=== PATIENT | male | born 1965 | race Two or more races ===

== ENCOUNTER 2018-08-09 20:13 | Emergency (ER) | payer MEDICAID ==
--- NOTE | 2018-08-09 21:04 | EDM.PDOC ---
ED HPI GENERAL MEDICAL PROBLEM - General Chief Complaint: Respiratory Problem Stated Complaint: DIFFICULTY BREATHING Time Seen by Provider: 08/09/18 20:30 Source of Information: Reports: Patient - History of Present Illness INITIAL COMMENTS - FREE TEXT/NARRATIVE: Scar complains of a cough for about a month. Productive; associated postnasal drainage and runny nose. Failed 2 courses antibiotics, the last course was ciprofloxacin with no improvement(07/20). Scar has a history of COPD, tobacco abuse, hypertension &type 2 diabetes. He denies fever or chills neither does he have any history. - Related Data Allergies Allergy/AdvReac Type Severity Reaction Status Date / Time No Known Allergies Allergy Verified 08/09/18 20:34 Home Meds: Home Meds Lisinopril 40 mg PO DAILY 07/20/18 [History] Metoprolol Succinate 50 mg PO DAILY 07/20/18 [History] amLODIPine Besylate [Amlodipine Besylate] 5 mg PO DAILY 07/20/18 [History] atorvaSTATin Calcium [Atorvastatin Calcium] 40 mg PO BEDTIME 07/20/18 [History] metFORMIN HCl [Metformin HCl] 500 mg PO BID 07/20/18 [History] Past Medical History Cardiovascular History: Reports: High Cholesterol, Hypertension Respiratory History: Reports: Pneumonia, Recurrent Psychiatric History: Reports: Anxiety, Depression Endocrine/Metabolic History: Reports: Diabetes, Type II - Past Surgical History Cardiovascular Surgical History: Reports: Other (See Below) Other Cardiovascular Surgeries/Procedures: Valve surgery GI Surgical History: Reports: Hernia, Inguinal Social & Family History - Family History Family Medical History: Noncontributory - Tobacco Use Smoking Status *Q: Current Every Day Smoker Years of Tobacco use: 35 Packs/Tins Daily: 1 - Caffeine Use Caffeine Use: Reports: Coffee - Recreational Drug Use Recreational Drug Use: No ED ROS GENERAL - Review of Systems Review Of Systems: ROS reveals no pertinent complaints other than HPI. ED EXAM, GENERAL - Physical Exam Exam: See Below Exam Limited By: No Limitations General Appearance: Alert, WD/WN Throat/Mouth: Normal Inspection, Normal Lips, Normal Teeth, Normal Gums, Normal Oropharynx, Normal Voice, No Airway Compromise Head: Atraumatic, Normocephalic Neck: Normal Inspection, Supple, Non-Tender, Full Range of Motion Respiratory/Chest: No Respiratory Distress, Lungs Clear, Normal Breath Sounds, No Accessory Muscle Use, Chest Non-Tender Cardiovascular: Normal Peripheral Pulses Course - Vital Signs Last Recorded V/S: Last Vital Signs Temp 97.6 F 08/09/18 20:15 Pulse 81 08/09/18 20:15 Resp 18 08/09/18 20:15 BP 122/79 08/09/18 20:15 Pulse Ox 99 08/09/18 20:15 - Orders/Labs/Meds Orders: Active Orders 24 hr Category Date Time Status CXR [Chest 2V] [CR] Stat Exams 08/09/18 20:38 Taken Departure - Departure Time of Disposition: 21:02 Disposition: Home, Self-Care 01 Clinical Impression: COPD (chronic obstructive pulmonary disease) - Discharge Information Referrals: PCP,Not In Area [Primary Care Provider] - - Problem List & Annotations (1) COPD (chronic obstructive pulmonary disease) SNOMED Code(s): 57202288 Code(s): J44.9 - CHRONIC OBSTRUCTIVE PULMONARY DISEASE, UNSPECIFIED Status : Acute Current Visit: Yes Qualifiers: COPD type: COPD with acute exacerbation Qualified Code(s): J44.1 - Chronic obstructive pulmonary disease with (acute) exacerbation - Problem List Review Problem List Initiated/Reviewed/Updated: Yes - My Orders Last 24 Hours: My Active Orders 08/09/18 20:38 CXR [Chest 2V] [CR] Stat - Assessment/Plan Last 24 Hours: My Active Orders 08/09/18 20:38 CXR [Chest 2V] [CR] Stat Plan: His chest x-ray was unremarkable. I sent him on prednisone, and chose doxycycline for abx.
--- NOTE | 2018-08-12 13:59 | CR ---
INDICATION: Cough. CHEST TWO VIEWS: PA and lateral views of the chest revealed the heart, mediastinum and avril thoracic to be unremarkable. There is a suggestion of a small nodular density at the lower lung field on the right likely representing a granuloma. This could be compared to previous studies if available or reexamined in 3 to 6 months to confirm stability. An active infiltrate or effusion was not identified. IMPRESSION: No acute process. Probable granuloma to right lung base. Follow up study or comparison to old studies may be helpful to confirm probable granuloma. MTDD
== END 2018-08-09 21:00 | disposition home or self-care (01) ==
LOC: FB.ED 20:13
DX: J44.9 Chronic obstructive pulmonary disease, unspecified (principal); E78.00 Pure hypercholesterolemia, unspecified; I10 Essential (primary) hypertension; E11.9 Type 2 diabetes mellitus without complications; F41.9 Anxiety disorder, unspecified; F32.9 Major depressive disorder, single episode, unspecified; F17.210 Nicotine dependence, cigarettes, uncomplicated; Z79.899 Other long term (current) drug therapy; Z79.84 Long term (current) use of oral hypoglycemic drugs
CPT/HCPCS: 71046; 99283

== ENCOUNTER 2018-11-27 22:52 | Emergency (ER) | payer MEDICAID ==
--- NOTE | 2018-11-27 23:16 | EDM.PDOC ---
ED HPI GENERAL MEDICAL PROBLEM - General Chief Complaint: ENT Problem Stated Complaint: TOOTHPAIN Time Seen by Provider: 11/27/18 22:52 Source of Information: Reports: Patient, Family (Friend) History Limitations: Reports: No Limitations - History of Present Illness INITIAL COMMENTS - FREE TEXT/NARRATIVE: 53 y.o.w.m -smoker- came with his friend to the ed due to tooth ache today. Pt took Tylenol EMS DIRECTOR which did not help. Pt was not able to sleep due to tooth ache , prompting him to come to the ED. Pt stated he has no dentist. Eating and cold exposure makes the pain worse. No N/V/D no CP or any other acute medical issues. BP 112/80 RR 17 Pulse ox 95% on RA Pulse 87 Temp 36.8 Onset Date: 11/27/18 Onset Time: 06:00 Duration: Hour(s):, Getting Worse, Intermittent Location: Reports: Face (molar tooth) Quality: Reports: Dull, Pressure, Throbbing Severity: Moderate Improves with: Reports: None Worsens with: Reports: None Context: Reports: Other (poor dentition) Associated Symptoms: Reports: No Other Symptoms Treatments EMS DIRECTOR: Reports: NSAIDS - Related Data Allergies Allergy/AdvReac Type Severity Reaction Status Date / Time No Known Allergies Allergy Verified 11/27/18 23:11 Home Meds: Home Meds Lisinopril 40 mg PO DAILY 07/20/18 [History] Metoprolol Succinate 100 mg PO DAILY 07/20/18 [History] metFORMIN HCl [Metformin HCl] 500 mg PO BID 07/20/18 [History] Amoxicillin/Potassium Clav [Augmentin 875-125 Tablet] 1 each PO BID #20 tablet 11/27/18 [Rx] Past Medical History Cardiovascular History: Reports: High Cholesterol, Hypertension Respiratory History: Reports: Pneumonia, Recurrent Psychiatric History: Reports: Anxiety, Depression Endocrine/Metabolic History: Reports: Diabetes, Type II - Past Surgical History Cardiovascular Surgical History: Reports: Other (See Below) Other Cardiovascular Surgeries/Procedures: Valve surgery GI Surgical History: Reports: Hernia, Inguinal Social & Family History - Family History Family Medical History: Noncontributory - Caffeine Use Caffeine Use: Reports: Coffee ED ROS ENT - Review of Systems Review Of Systems: See Below Constitutional: Reports: No Symptoms HEENT: Reports: Throat Pain Respiratory: Reports: No Symptoms Cardiovascular: Reports: No Symptoms Endocrine: Reports: No Symptoms GI/Abdominal: Reports: No Symptoms : Reports: No Symptoms Musculoskeletal: Reports: No Symptoms Skin: Reports: No Symptoms Neurological: Reports: No Symptoms Psychiatric: Reports: No Symptoms Hematologic/Lymphatic: Reports: No Symptoms Immunologic: Reports: No Symptoms ED EXAM, ENT - Physical Exam Exam: See Below Exam Limited By: No Limitations General Appearance: Alert, WD/WN, Mild Distress Eye Exam: Bilateral Eye: Normal Inspection Ears: Normal External Exam Nose: Normal Inspection, Normal Mucousa Mouth/Throat: Normal Lips, Normal Oropharynx, Dental Pain, Dental Tenderness, Dental Trauma (Tooths #32) Head: Atraumatic, Normocephalic Neck: Normal Inspection, Supple, Non-Tender Respiratory/Chest: No Respiratory Distress, Lungs Clear, Normal Breath Sounds, No Accessory Muscle Use, Chest Non-Tender Cardiovascular: Normal Peripheral Pulses, Regular Rate, Rhythm, No Edema, No Gallop, No Murmur GI/Abdominal: Normal Bowel Sounds, Soft, Non-Tender, No Mass (Male) Exam: Deferred Rectal (Males) Exam: Deferred Back: Normal Inspection, Full Range of Motion Extremities: Normal Inspection, Normal Range of Motion, No Pedal Edema, Normal Capillary Refill Neurological: Alert, Oriented, CN II-XII Intact, Normal Cognition, Normal Gait Psychiatric: Normal Affect, Normal Mood Skin: Warm, Dry, Intact, Normal Color, No Rash Lymphatic: No Adenopathy Course - Vital Signs Text/Narrative:: 53 y.o.w.m -smoker- came with his friend to the ed due to tooth ache today. Pt took Tylenol EMS DIRECTOR which did not help. Pt was not able to sleep due to tooth ache , prompting him to come to the ED. Pt stated he has no dentist. Eating and cold exposure makes the pain worse. No N/V/D no CP or any other acute medical issues. BP 112/80 RR 17 Pulse ox 95% on RA Pulse 87 Temp 36.8 PE: WNWD W M with with a decayed tooth # 32 Impression: Toothache, decayed tooth #32, Poor dentition. Tx: Augmentin, [place] Reexam: Improved Plan: D/C with instructions Last Recorded V/S: Last Vital Signs Temp 36.8 C 11/27/18 23:05 Pulse 87 11/27/18 23:05 Resp 17 11/27/18 23:05 BP 112/80 11/27/18 23:05 Pulse Ox 95 11/27/18 23:05 - Orders/Labs/Meds Meds: Medications Discontinued Medications Generic Name Dose Route Start Last Admin Trade Name Dima PRN Reason Stop Dose Admin Hydrocodone Bitart/Acetaminophen 2 tab 11/27/18 23:09 11/27/18 23:18 [place] 325-5 Mg PO 11/27/18 23:10 1 tab ONETIME ONE Administration Amoxicillin/Clavulanate Potassium 1 tab 11/27/18 23:10 11/27/18 23:18 Augmentin 875 Mg/125 Mg PO 11/27/18 23:11 1 tab ONETIME ONE Administration Departure - Departure Time of Disposition: 23:11 Disposition: Home, Self-Care 01 Condition: Good Clinical Impression: Toothache, Poor dentition - Discharge Information Prescriptions: Amoxicillin/Potassium Clav [Augmentin 875-125 Tablet] 1 each PO BID #20 tablet Instructions: Dental Abscess, Benzocaine mouth gel, ointment, solution, or dental paste Referrals: Evelyn Hameed NP [Primary Care Provider] - Forms: ED Department Discharge Additional Instructions: Please quit tobacco use, please apply mouth/teeth hygiene, take Augmentin as recommended, Motin every 6-8 hours with food, please f/u with a dentist in am. Please come back if your symptoms get worse acutely
[2018-11-27] MEDS: Acetaminophen/HYDROcodone 325-5 MG Tab PO ONE (23:18)
[2018-11-27] MEDS: Amoxicillin/Clavulanate K 875-125 MG Tab PO ONE (23:18)
== END 2018-11-27 23:29 | disposition home or self-care (01) ==
LOC: FB.ED 22:52
DX: K02.9 Dental caries, unspecified (principal); K00.7 Teething syndrome; I10 Essential (primary) hypertension; E11.9 Type 2 diabetes mellitus without complications; Z79.84 Long term (current) use of oral hypoglycemic drugs; Z79.899 Other long term (current) drug therapy
CPT/HCPCS: 99282; A9270-GY

== ENCOUNTER 2019-06-01 22:11 | Emergency (ER) | payer MEDICAID ==
--- NOTE | 2019-06-01 22:29 | EDM.PDOC ---
ED HPI GENERAL MEDICAL PROBLEM - General Chief Complaint: Cardiovascular Problem Stated Complaint: BLOOD PRESSURE Time Seen by Provider: 06/01/19 22:15 Source of Information: Reports: Patient History Limitations: Reports: No Limitations - History of Present Illness INITIAL COMMENTS - FREE TEXT/NARRATIVE: pt ran out of his Metoprolol X 3 days and wants this treated, he checked BP at home and was in 150s systolic, pt denies any Neuro/CV/ resp sx or any other associated sx or medical concerns, states he has a refill on his metoprolol that he can pick up attendant tomorrow. - Related Data Allergies Allergy/AdvReac Type Severity Reaction Status Date / Time No Known Allergies Allergy Verified 11/27/18 23:11 Home Meds: Home Meds Lisinopril 40 mg PO DAILY 07/20/18 [History] Metoprolol Succinate 100 mg PO DAILY 07/20/18 [History] metFORMIN HCl [Metformin HCl] 500 mg PO BID 07/20/18 [History] Amoxicillin/Potassium Clav [Augmentin 875-125 Tablet] 1 each PO BID #20 tablet 11/27/18 [Rx] Past Medical History Cardiovascular History: Reports: High Cholesterol, Hypertension Respiratory History: Reports: Pneumonia, Recurrent Psychiatric History: Reports: Anxiety, Depression Endocrine/Metabolic History: Reports: Diabetes, Type II - Past Surgical History Cardiovascular Surgical History: Reports: Other (See Below) Other Cardiovascular Surgeries/Procedures: Valve surgery GI Surgical History: Reports: Hernia, Inguinal Social & Family History - Family History Family Medical History: Noncontributory - Caffeine Use Caffeine Use: Reports: Coffee ED ROS GENERAL - Review of Systems Review Of Systems: See Below Constitutional: Reports: No Symptoms HEENT: Reports: No Symptoms Respiratory: Reports: No Symptoms Cardiovascular: Reports: No Symptoms GI/Abdominal: Reports: No Symptoms Musculoskeletal: Reports: No Symptoms Neurological: Reports: No Symptoms ED EXAM, GENERAL - Physical Exam Exam: See Below Exam Limited By: No Limitations General Appearance: Alert, No Apparent Distress Eye Exam: Bilateral Eye: Normal Inspection Nose: Normal Inspection Throat/Mouth: Normal Inspection, Normal Oropharynx Head: Atraumatic, Normocephalic Neck: Normal Inspection, Supple, Non-Tender Respiratory/Chest: No Respiratory Distress, Lungs Clear, Normal Breath Sounds Cardiovascular: Normal Peripheral Pulses, No JVD, No Murmur GI/Abdominal: Normal Bowel Sounds, Soft Extremities: Normal Inspection Course - Vital Signs Text/Narrative:: pt is medically stable with regards to his hypertension , one tablet metoprolol ER 150 mg was given , pt to pick up attendant his prescription tomorrow and follow with his PCP . Departure - Departure Time of Disposition: 22:32 Disposition: Home, Self-Care 01 Clinical Impression: Hypertension Referrals: Evelyn Hameed NP [Primary Care Provider] -
[2019-06-01] MEDS ORDERED: Metoprolol Succinate 100 MG Tab.ER PO ONE (22:32)
== END 2019-06-01 22:50 | disposition home or self-care (01) ==
LOC: FB.ED 22:11
DX: I10 Essential (primary) hypertension (principal); E11.9 Type 2 diabetes mellitus without complications; Z79.84 Long term (current) use of oral hypoglycemic drugs; Z79.899 Other long term (current) drug therapy
CPT/HCPCS: 99282; A9270

== ENCOUNTER 2019-06-14 23:14 | Emergency (ER) | payer MEDICAID ==
[2019-06-14] MEDS ORDERED: Albuterol 8 GM Inhaler INH ONE (23:15)
[2019-06-14] MEDS ORDERED: Azithromycin 250 MG Tab PO ONE (23:15)
[2019-06-14] MEDS ORDERED: predniSONE 20 MG Tab PO ONE (23:15)
[2019-06-14] MEDS ORDERED: Albuterol/Ipratropium 3.0-0.5 MG/3 ML Neb Soln NEB ONE (23:35)
--- NOTE | 2019-06-15 00:18 | EDM.PDOC ---
ED HPI GENERAL MEDICAL PROBLEM - General Chief Complaint: Chest Pain Stated Complaint: CHEST PAIN Time Seen by Provider: 06/15/19 00:12 Source of Information: Reports: Patient History Limitations: Reports: No Limitations - History of Present Illness INITIAL COMMENTS - FREE TEXT/NARRATIVE: Scar is a 54 yo male with HTN,DM and tobacco abuse who presents with a cough , wheezing an bilateral pleuritic chest pain for a few days duration. The cough is paroxysmal,associated with shortness of breath. No fever. No lien chest,jaw, or neck pain.He endorses heavily smoking for several years. - Related Data Allergies Allergy/AdvReac Type Severity Reaction Status Date / Time No Known Allergies Allergy Verified 06/01/19 22:25 Home Meds: Home Meds Lisinopril 40 mg PO DAILY 07/20/18 [History] Metoprolol Succinate 150 mg PO DAILY 07/20/18 [History] metFORMIN HCl [Metformin HCl] 500 mg PO BID 07/20/18 [History] Aspirin [Adult Low Dose Aspirin EC] 81 mg PO DAILY 06/01/19 [History] amLODIPine Besylate [Amlodipine Besylate] 5 mg PO DAILY 06/01/19 [History] atorvaSTATin [Lipitor] 40 mg PO BEDTIME 06/01/19 [History] Past Medical History Cardiovascular History: Reports: High Cholesterol, Hypertension Respiratory History: Reports: Pneumonia, Recurrent Psychiatric History: Reports: Anxiety, Depression Endocrine/Metabolic History: Reports: Diabetes, Type II - Past Surgical History Cardiovascular Surgical History: Reports: Other (See Below) Other Cardiovascular Surgeries/Procedures: Valve surgery GI Surgical History: Reports: Hernia, Inguinal Social & Family History - Family History Family Medical History: Noncontributory - Caffeine Use Caffeine Use: Reports: Coffee ED ROS GENERAL - Review of Systems Review Of Systems: Comprehensive ROS is negative, except as noted in HPI. ED EXAM, GENERAL - Physical Exam Exam: See Below Exam Limited By: No Limitations General Appearance: Mild Distress Ears: Normal External Exam Nose: Normal Inspection Throat/Mouth: Normal Inspection Head: Atraumatic Neck: Normal Inspection Respiratory/Chest: No Respiratory Distress, Chest Non-Tender, Decreased Breath Sounds, Crackles, Rhonchi Cardiovascular: Normal Peripheral Pulses, Regular Rate, Rhythm, No Edema EKG INTERPRETATION EKG Date: 06/15/19 Rhythm: NSR [place]: Normal Course - Orders/Labs/Meds Orders: Active Orders 24 hr Category Date Time Status EKG Documentation Completion [RC] ASDIRECTED Care 06/14/19 23:25 Active RT Aerosol Therapy [RC] ASDIRECTED Care 06/14/19 23:35 Active Chest 2V [CR] Stat Exams 06/14/19 23:37 Taken EKG 12 Lead [EK] Routine Ther 06/14/19 23:25 Ordered Meds: Medications Discontinued Medications Generic Name Dose Route Start Last Admin Trade Name Dima PRN Reason Stop Dose Admin Albuterol/Ipratropium 3 ml 06/14/19 23:35 06/14/19 23:35 Duoneb 3.0-0.5 Mg/3 Ml NEB 06/14/19 23:36 3 ml ONETIME ONE Administration Departure - Departure Time of Disposition: 00:15 Disposition: Home, Self-Care 01 Condition: Good Clinical Impression: COPD (chronic obstructive pulmonary disease) Qualifiers: COPD type: COPD with acute exacerbation Qualified Code(s): J44.1 - Chronic obstructive pulmonary disease with (acute) exacerbation - Discharge Information Referrals: PCP,None [Primary Care Provider] - - Problem List & Annotations (1) COPD (chronic obstructive pulmonary disease) SNOMED Code(s): 77290147 Code(s): J44.9 - CHRONIC OBSTRUCTIVE PULMONARY DISEASE, UNSPECIFIED Status : Acute Current Visit: Yes Qualifiers: COPD type: COPD with acute exacerbation Qualified Code(s): J44.1 - Chronic obstructive pulmonary disease with (acute) exacerbation (2) Hypertension SNOMED Code(s): 37328482 Code(s): I10 - ESSENTIAL (PRIMARY) HYPERTENSION Status: Acute Current Visit: No - Problem List Review Problem List Initiated/Reviewed/Updated: Yes - My Orders Last 24 Hours: My Active Orders 06/14/19 23:25 EKG Documentation Completion [RC] ASDIRECTED EKG 12 Lead [EK] Routine 06/14/19 23:35 RT Aerosol Therapy [RC] ASDIRECTED 06/14/19 23:37 Chest 2V [CR] Stat - Assessment/Plan Last 24 Hours: My Active Orders 06/14/19 23:25 EKG Documentation Completion [RC] ASDIRECTED EKG 12 Lead [EK] Routine 06/14/19 23:35 RT Aerosol Therapy [RC] ASDIRECTED 06/14/19 23:37 Chest 2V [CR] Stat Plan: Patient declined blood work. A CXR & EKG were unremarkable.He responded very well to Duo Neb. I discharged him home on Pro Air,Zpak and Prednisone. I strongly encouraged him to quit smoking. I strictly recommended follow up on Sunday,and to return to ED with any worsening symptoms
== END 2019-06-15 00:45 | disposition home or self-care (01) ==
LOC: FB.ED 23:14
DX: J44.1 Chronic obstructive pulmonary disease with (acute) exacerbation (principal); I10 Essential (primary) hypertension; E78.00 Pure hypercholesterolemia, unspecified; E11.9 Type 2 diabetes mellitus without complications; Z79.82 Long term (current) use of aspirin; Z79.899 Other long term (current) drug therapy
CPT/HCPCS: 71046; 93005; 94640; 99285; A9270; J7620-GY

== ENCOUNTER 2019-07-13 13:27 | Emergency (ER) | payer MEDICAID ==
--- NOTE | 2019-07-13 13:55 | EDM.PDOC ---
ED HPI GENERAL MEDICAL PROBLEM - General Chief Complaint: Gastrointestinal Problem Stated Complaint: VOMIT,NAUSEA Time Seen by Provider: 07/13/19 13:50 Source of Information: Reports: Patient History Limitations: Reports: No Limitations - History of Present Illness INITIAL COMMENTS - FREE TEXT/NARRATIVE: pt comes ambulatory and asymptomatic to ER with concerns for a brief episode he had about 6 hrs ago were he felt while smoking his cigarete at his office , very light headed, nauseous, and diaphoretic, this lasted about 10 minutes, , had an emesis during this, , denies LOC or any chest pain or SOB or any other associated sx , report experiencing similar sx like this but not as bad/ only dizzy spell for a bout a year along with Hx of chronic exertional dyspnea , and tells me he had a neg stress test about a month ago. pt report long Hx of heavy tobacco abuse for many years. and Hx of HTN. Headache Pain Score (Numeric/FACES): 9 - Related Data Allergies Allergy/AdvReac Type Severity Reaction Status Date / Time No Known Allergies Allergy Verified 07/13/19 13:57 Home Meds: Home Meds Lisinopril 40 mg PO DAILY 07/20/18 [History] Metoprolol Succinate 150 mg PO DAILY 07/20/18 [History] metFORMIN HCl [Metformin HCl] 500 mg PO BID 07/20/18 [History] Aspirin [Adult Low Dose Aspirin EC] 81 mg PO DAILY 06/01/19 [History] amLODIPine Besylate [Amlodipine Besylate] 5 mg PO DAILY 06/01/19 [History] atorvaSTATin [Lipitor] 40 mg PO BEDTIME 06/01/19 [History] Cyclobenzaprine [Flexeril] 10 mg PO ASDIRECTED 06/15/19 [History] Escitalopram [Lexapro] 20 mg PO ASDIRECTED 06/15/19 [History] Past Medical History Cardiovascular History: Reports: High Cholesterol, Hypertension Respiratory History: Reports: Pneumonia, Recurrent Psychiatric History: Reports: Anxiety, Depression Endocrine/Metabolic History: Reports: Diabetes, Type II - Past Surgical History Cardiovascular Surgical History: Reports: Other (See Below) Other Cardiovascular Surgeries/Procedures: Valve surgery GI Surgical History: Reports: Hernia, Inguinal Social & Family History - Family History Family Medical History: Noncontributory - Caffeine Use Caffeine Use: Reports: Coffee ED ROS GENERAL - Review of Systems Review Of Systems: See Below Constitutional: Reports: No Symptoms. Denies: Fever, Chills HEENT: Reports: No Symptoms Respiratory: Reports: No Symptoms Cardiovascular: Reports: No Symptoms GI/Abdominal: Reports: Nausea, Vomiting Musculoskeletal: Reports: No Symptoms Skin: Reports: No Symptoms ED EXAM, GENERAL - Physical Exam Exam: See Below Exam Limited By: No Limitations General Appearance: Alert, No Apparent Distress Eye Exam: Bilateral Eye: Normal Inspection Nose: Normal Inspection Throat/Mouth: Normal Inspection, Normal Oropharynx Head: Atraumatic, Normocephalic Neck: Normal Inspection, Supple, Non-Tender Respiratory/Chest: No Respiratory Distress, Lungs Clear Cardiovascular: Normal Peripheral Pulses, Regular Rate, Rhythm, No Edema GI/Abdominal: Normal Bowel Sounds, Soft, Non-Tender Back Exam: Normal Inspection Extremities: Normal Inspection, Normal Range of Motion, No Pedal Edema Neurological: Alert, Oriented, CN II-XII Intact Psychiatric: Normal Affect Skin Exam: Warm, Dry Course - Vital Signs Text/Narrative:: unremarkable labs and CXR results were explained to pt, EKG shows no acute changes. pt remained asymptomatic here and the episode he had earlier this morning is concerning for angina , pt is stable to follow with pcp on this issue, this was explained to pt and was asked to schedule a follow up appointment in 2 days. meanwhile advised pt to start working on smoking cessation and take baby asa daily. Last Recorded V/S: Last Vital Signs Temp 36.3 C 07/13/19 13:30 Pulse 91 07/13/19 13:30 Resp 20 07/13/19 13:30 BP 141/100 H 07/13/19 13:30 Pulse Ox 98 07/13/19 13:30 - Orders/Labs/Meds Orders: Active Orders 24 hr Category Date Time Status EKG Documentation Completion [RC] ASDIRECTED Care 07/13/19 13:57 Active Chest 1V Frontal [CR] Stat Exams 07/13/19 13:56 Taken EKG 12 Lead [EK] Routine Ther 07/13/19 13:56 Ordered Labs: Laboratory Tests 07/13/19 07/13/19 07/13/19 Range/Units 14:05 14:05 14:05 WBC 10.8 (4.5-12.0) X10-3/uL RBC 5.19 (4.30-5.75) x10(6)uL Hgb 15.8 (13.5-17.8) g/dL Hct 46.5 (30.0-51.3) % MCV 89.5 (80-96) fL MCH 30.4 (27.7-33.6) pg MCHC 34.0 (32.2-35.4) g/dL RDW 12.9 (11.5-15.5) % Plt Count 124 L (125-369) X10(3)uL MPV 10.3 (7.4-10.4) fL Neut % (Auto) 75.3 (46-82) % Lymph % (Auto) 18.1 (13-37) % [place] % (Auto) 5.0 (4-12) % Eos % (Auto) 1 (1.0-5.0) % Baso % (Auto) 0 (0-2) % Neut # (Auto) 8.2 (1.6-8.3) # Lymph # (Auto) 2.0 (0.6-5.0) # [place] # (Auto) 0.5 (0.0-1.3) # Eos # (Auto) 0.1 (0.0-0.8) # Baso # (Auto) 0.0 (0.0-0.2) # Sodium 143 (135-145) mmol/L Potassium 4.1 (3.5-5.3) mmol/L Chloride 108 (100-110) mmol/L Carbon Dioxide 22 (21-32) mmol/L BUN 20 H (7-18) mg/dL Creatinine 0.8 (0.70-1.30) mg/dL Est Cr Clr Drug Dosing 82.47 mL/min Estimated GFR (MDRD) > 60 (>60) BUN/Creatinine Ratio 25.0 H (9-20) Glucose 132 H (80-116) mg/dL Calcium 8.8 (8.6-10.2) mg/dL Total Bilirubin 0.4 (0.1-1.3) mg/dL AST 23 (5-25) IU/L ALT 52 H (12-36) U/L Alkaline Phosphatase 76 (56-112) IU/L Troponin I < 0.017 L (<0.017-0.056) ng/mL Total Protein 6.8 (6.0-8.0) g/dL Albumin 3.6 (3.5-5.2) g/dL Globulin 3.2 g/dL Albumin/Globulin Ratio 1.1 TSH, Ultra Sensitive 0.87 (0.36-3.74) IU/mL Departure - Departure Time of Disposition: 15:04 Disposition: Home, Self-Care 01 Clinical Impression: Spell of dizziness - Discharge Information Referrals: Evelyn Hameed NP [Primary Care Provider] - Forms: ED Department Discharge Sepsis Event Note - Focused Exam Vital Signs: Vital Signs Temp Pulse Resp BP Pulse Ox 07/13/19 13:30 36.3 C 91 20 141/100 H 98 Date Exam was Performed: 07/13/19 Time Exam was Performed: 14:59 - My Orders Last 24 Hours: My Active Orders 07/13/19 13:56 Chest 1V Frontal [CR] Stat EKG 12 Lead [EK] Routine 07/13/19 13:57 EKG Documentation Completion [RC] ASDIRECTED - Assessment/Plan Last 24 Hours: My Active Orders 07/13/19 13:56 Chest 1V Frontal [CR] Stat EKG 12 Lead [EK] Routine 07/13/19 13:57 EKG Documentation Completion [RC] ASDIRECTED
--- NOTE | 2019-07-14 14:02 | CR ---
INDICATION: Short of breath. CHEST: An AP upright portable view of the chest, 07/13/19, was compared with and 08/09/18 and reveals the heart to remain normal in size and shape. There are some linear densities at the left lung base, which may represent fibrosis and/or linear atelectasis. Pulmonary vasculature appears somewhat congested raising question of pulmonary vascular congestion due to a noncardiac cause, but should be correlated clinically, as an acute myocardial event could also be present. No gross consolidating pneumonia or effusion was seen. Evidence of exogenous obesity is noted. IMPRESSION: 1. Linear densities at the left lung base may represent subsegmental atelectasis and/or fibrosis. 2. Heart did not appear to be grossly enlarged. 3. Pulmonary vascular congestion is suggested, which could be due to fluid overload or noncardiac cause otherwise, although an acute myocardial event could also be present - correlate clinically. 4. Exogenous obesity. [facility]
== END 2019-07-13 15:47 | disposition home or self-care (01) ==
LOC: FB.ED 13:27
DX: R42 Dizziness and giddiness (principal); I10 Essential (primary) hypertension; E11.9 Type 2 diabetes mellitus without complications; E78.00 Pure hypercholesterolemia, unspecified; F41.9 Anxiety disorder, unspecified; F32.9 Major depressive disorder, single episode, unspecified; F17.210 Nicotine dependence, cigarettes, uncomplicated; Z79.82 Long term (current) use of aspirin; Z79.84 Long term (current) use of oral hypoglycemic drugs; Z79.899 Other long term (current) drug therapy
CPT/HCPCS: 36415; 71045; 80053; 84443; 84484; 85025; 93005; 99284-25

== ENCOUNTER 2019-08-21 20:50 | Emergency (ER) | payer MEDICAID ==
[2019-08-21] MEDS ORDERED: Acetaminophen/Diphenhydramine 500-25 MG Tab PO ONE (21:00)
--- NOTE | 2019-08-21 22:13 | EDM.PDOC ---
ED HPI GENERAL MEDICAL PROBLEM - General Chief Complaint: General Stated Complaint: CHILLS; COUGHING Time Seen by Provider: 08/21/19 20:55 Source of Information: Reports: Patient History Limitations: Reports: No Limitations - History of Present Illness INITIAL COMMENTS - FREE TEXT/NARRATIVE: Patient presented to the ED because of cough and cold,fever,chills for 1 day. There is no N/V/D. bodyaching Pain Score (Numeric/FACES): 5 - Related Data Allergies Allergy/AdvReac Type Severity Reaction Status Date / Time No Known Allergies Allergy Verified 08/21/19 21:41 Home Meds: Home Meds Lisinopril 40 mg PO DAILY 07/20/18 [History] Metoprolol Succinate 150 mg PO DAILY 07/20/18 [History] metFORMIN HCl [Metformin HCl] 500 mg PO BID 07/20/18 [History] Aspirin [Adult Low Dose Aspirin EC] 81 mg PO DAILY 06/01/19 [History] amLODIPine Besylate [Amlodipine Besylate] 5 mg PO DAILY 06/01/19 [History] atorvaSTATin [Lipitor] 40 mg PO BEDTIME 06/01/19 [History] Cyclobenzaprine [Flexeril] 10 mg PO ASDIRECTED 06/15/19 [History] Escitalopram [Lexapro] 20 mg PO ASDIRECTED 06/15/19 [History] Past Medical History Cardiovascular History: Reports: High Cholesterol, Hypertension Respiratory History: Reports: Pneumonia, Recurrent Psychiatric History: Reports: Anxiety, Depression Endocrine/Metabolic History: Reports: Diabetes, Type II - Past Surgical History HEENT Surgical History: Reports: Other (See Below) Other HEENT Surgeries/Procedures: Right eye surgery. Cardiovascular Surgical History: Reports: Other (See Below) Other Cardiovascular Surgeries/Procedures: Valve surgery GI Surgical History: Reports: Hernia, Inguinal Social & Family History - Family History Family Medical History: Noncontributory - Tobacco Use Smoking Status *Q: Former Smoker Used Tobacco, but Quit: Yes Month/Year Tobacco Last Used: 06/2019 - Caffeine Use Caffeine Use: Reports: Coffee ED ROS GENERAL - Review of Systems Review Of Systems: See Below Constitutional: Reports: No Symptoms HEENT: Reports: No Symptoms Respiratory: Reports: Cough. Denies: Shortness of Breath, Sputum Cardiovascular: Reports: No Symptoms Endocrine: Reports: No Symptoms GI/Abdominal: Reports: No Symptoms : Reports: No Symptoms Musculoskeletal: Reports: No Symptoms Skin: Reports: No Symptoms Neurological: Reports: No Symptoms ED EXAM, GENERAL - Physical Exam Exam: See Below Exam Limited By: No Limitations General Appearance: Alert, No Apparent Distress Eye Exam: Bilateral Eye: PERRL Ears: Normal External Exam, Normal Canal, Normal TMs Ear Exam: Bilateral Ear: Erythema Nose: Normal Inspection, Nasal Drainage Throat/Mouth: Normal Inspection, Normal Lips, Normal Teeth, Normal Gums Head: Atraumatic, Normocephalic Neck: Normal Inspection, Supple, Non-Tender, Full Range of Motion Respiratory/Chest: No Respiratory Distress, Lungs Clear, Normal Breath Sounds, No Accessory Muscle Use Cardiovascular: Normal Peripheral Pulses, Regular Rate, Rhythm, No Edema, No Gallop, No JVD, No Murmur, No Rub GI/Abdominal: Normal Bowel Sounds, Soft, Non-Tender Neurological: Alert, Oriented, CN II-XII Intact, Normal Cognition Psychiatric: Normal Affect Skin Exam: Warm Course - Vital Signs Text/Narrative:: Influenza A/B-neg tylenol pm 2 po x1 ibuprofen 800 mg po x1 Last Recorded V/S: Last Vital Signs Temp 37.1 C 08/21/19 20:50 Pulse 103 H 08/21/19 20:50 Resp 18 08/21/19 20:50 BP 140/81 08/21/19 20:50 Pulse Ox 97 08/21/19 20:50 - Orders/Labs/Meds Meds: Medications Discontinued Medications Generic Name Dose Route Start Last Admin Trade Name Dima PRN Reason Stop Dose Admin Acetaminophen/Diphenhydramine HCl 2 tab 08/22/19 21:00 Tylenol Pm Extra Strength PO 08/22/19 21:01 ONETIME ONE Acetaminophen/Diphenhydramine HCl 2 tab 08/21/19 21:00 08/21/19 22:46 Tylenol Pm Extra Strength PO 08/21/19 21:01 2 tab ONETIME ONE Administration Ibuprofen 800 mg 08/21/19 22:31 08/21/19 22:41 Motrin PO 08/21/19 22:32 800 mg ONETIME ONE Administration Departure - Departure Time of Disposition: 22:10 Disposition: Home, Self-Care 01 Condition: Good Clinical Impression: URI (upper respiratory infection) - Discharge Information Instructions: Upper Respiratory Infection, Adult, [id number] Referrals: Evelyn Hameed NP [Primary Care Provider] - Forms: ED Department Discharge Additional Instructions: PLease read discharge instructions on Viral-URI increase oral fluids take ibuprofen 800 mg with tylenol 1000 mg every 8 hours as needed for pain/ fever follow up as needed Sepsis Event Note - Evaluation Sepsis Screening Result: No Definite Risk - Focused Exam Vital Signs: Vital Signs Temp Pulse Resp BP Pulse Ox 08/21/19 20:50 37.1 C 103 H 18 140/81 97 Date Exam was Performed: 08/22/19 Time Exam was Performed: 00:00
[2019-08-21] MEDS ORDERED: Ibuprofen 800 MG Tab PO ONE (22:31)
[2019-08-22] MEDS ORDERED: Acetaminophen/Diphenhydramine 500-25 MG Tab PO ONE (21:00)
== END 2019-08-21 22:52 | disposition home or self-care (01) ==
LOC: FB.ED 20:50
DX: J06.9 Acute upper respiratory infection, unspecified (principal); I10 Essential (primary) hypertension; F41.9 Anxiety disorder, unspecified; E78.00 Pure hypercholesterolemia, unspecified; F32.9 Major depressive disorder, single episode, unspecified; E11.9 Type 2 diabetes mellitus without complications; Z79.84 Long term (current) use of oral hypoglycemic drugs; Z79.82 Long term (current) use of aspirin; Z79.899 Other long term (current) drug therapy; Z87.891 Personal history of nicotine dependence
CPT/HCPCS: 87804; 87804-59; 99283; A9270-GY

== ENCOUNTER 2019-08-22 22:19 | Emergency (ER) | payer MEDICAID ==
[2019-08-22] MEDS ORDERED: Rocuronium 100 MG/10 ML MDV IV ONE (22:20)
[2019-08-22] MEDS ORDERED: Propofol 200 MG/20 ML SDV IV ONE (22:20)
[2019-08-22] MEDS ORDERED: Midazolam 1 MG/ML 2 ML SDV IV ONE (22:20)
[2019-08-22] MEDS ORDERED: Succinylcholine 200 MG/10 ML MDV IV ONE (22:20)
[2019-08-22] MEDS ORDERED: Sodium Chloride 0.9% 10 ML Syringe FLUSH PRN (22:47)
[2019-08-22] MEDS ORDERED: Albuterol 0.083% 2.5 MG/3 ML Neb Soln NEB ONE (22:48)
[2019-08-22] MEDS ORDERED: Albuterol/Ipratropium 3.0-0.5 MG/3 ML Neb Soln NEB ONE (22:48)
[2019-08-22] MEDS ORDERED: methylPREDNISolone Sodium Succinate 125 MG/2 ML SDV IVPUSH ONE (22:48)
--- NOTE | 2019-08-22 22:51 | EDM.PDOC ---
ED HPI GENERAL MEDICAL PROBLEM - General Chief Complaint: Respiratory Problem Stated Complaint: SHORT OF BREATH Time Seen by Provider: 08/22/19 22:35 Source of Information: Reports: Patient History Limitations: Reports: No Limitations - History of Present Illness INITIAL COMMENTS - FREE TEXT/NARRATIVE: 54-year-old male who presents to the emergency department with marked difficulty breathing. He reports that he has had episodes of "lung problems" with cough and congestion for the past year. He had an episode in June and was treated with antibiotics and steroids and seemed to improve following this within 3 days ago began to have fever and chills with cough and difficulty breathing. He had some mild nasal congestion associated with this. He was seen in the emergency department yesterday by Dr. Mcbride and had an influenza screen which was negative. His O2 saturations were normal and his pulse rate was normal and he was told that he had a viral illness and was told to take Tylenol and ibuprofen and to increase his fluid intake. He reports that today he continued to have fever with chills and cough with shortness of breath and he slept most of the day and at approximately 9:30 PM he awoke with marked difficulty breathing and presents here via private vehicle. His cough has been hacking and minimally productive. He did have an episode of vomiting yesterday but has had none today. He has had little food intake today but he has taken some liquids today. He denies any chest pain. In fact, he denies any pain. He rates his pain as a 0/10. His respiratory rate was in the 50s when he arrived and he diaphoretic. He was, however, awake, alert and appropriately responsive. There are no other associated signs or symptoms. There are no other modifying factors. Onset: Other (3 days ago) Duration: Getting Worse Location: Reports: Other (No pain. Just difficulty breathing.) Quality: Reports: Other (None. But his respiratory difficulty is severe) Improves with: Reports: None Worsens with: Reports: Breathing, Other (He activity), Movement Context: Reports: Other (As above) Associated Symptoms: Reports: Cough, Diaphoresis, Fever/Chills, Loss of Appetite , Nausea/Vomiting, Shortness of Breath, Weakness Treatments AUDIT DIRECTOR: Reports: Acetaminophen, NSAIDS (Ibuprofen) - Related Data Allergies Allergy/AdvReac Type Severity Reaction Status Date / Time No Known Allergies Allergy Verified 08/21/19 21:41 Home Meds: Home Meds Lisinopril 40 mg PO DAILY 07/20/18 [History] Metoprolol Succinate 150 mg PO DAILY 07/20/18 [History] metFORMIN HCl [Metformin HCl] 500 mg PO BID 07/20/18 [History] Aspirin [Adult Low Dose Aspirin EC] 81 mg PO DAILY 06/01/19 [History] amLODIPine Besylate [Amlodipine Besylate] 5 mg PO DAILY 06/01/19 [History] atorvaSTATin [Lipitor] 40 mg PO BEDTIME 06/01/19 [History] Cyclobenzaprine [Flexeril] 10 mg PO ASDIRECTED 06/15/19 [History] Escitalopram [Lexapro] 20 mg PO ASDIRECTED 06/15/19 [History] Past Medical History Cardiovascular History: Reports: High Cholesterol, Hypertension Respiratory History: Reports: Pneumonia, Recurrent Psychiatric History: Reports: Anxiety, Depression Endocrine/Metabolic History: Reports: Diabetes, Type II - Past Surgical History HEENT Surgical History: Reports: Other (See Below) Other HEENT Surgeries/Procedures: Right eye surgery. 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[place]) ED ROS GENERAL - Review of Systems Review Of Systems: See Below Constitutional: Reports: Fever, Chills, Weakness, Fatigue, Diaphoresis HEENT: Reports: Other Respiratory: Reports: Shortness of Breath (Physical just), Cough Cardiovascular: Reports: Dyspnea on Exertion, Orthopnea Endocrine: Reports: Fatigue GI/Abdominal: Reports: Decreased Appetite, Nausea, Vomiting (Times one yesterday ) : Reports: Other (Decreased urine output) Musculoskeletal: Reports: No Symptoms Skin: Reports: Diaphoresis Neurological: Reports: Weakness Hematologic/Lymphatic: Reports: No Symptoms Immunologic: Reports: No Symptoms ED EXAM, GENERAL - Physical Exam Exam: See Below Exam Limited By: No Limitations General Appearance: Alert, WD/WN, Severe Distress Eye Exam: Bilateral Eye: EOMI, Normal Inspection, PERRL Ears: Normal External Exam, Hearing Grossly Normal Ear Exam: Bilateral Ear: Auricle Normal Nose: Normal Inspection, Normal Mucosa, No Blood Throat/Mouth: Normal Inspection, Normal Oropharynx, Normal Voice, No Airway Compromise Head: Atraumatic, Normocephalic Neck: Normal Inspection, Supple, Non-Tender, Full Range of Motion Respiratory/Chest: Respiratory Distress, Rales, Wheezing, Accessory Muscle Use, Prolonged Expiration Cardiovascular: Normal Peripheral Pulses, No Edema, No JVD, No Murmur, No Rub, Tachycardia Peripheral Pulses: 2+: Radial (L), Radial (R), Dorsalis Pedis (L), Dorsalis Pedis (R) GI/Abdominal: Soft, Non-Tender, No Mass, Abnormal Bowel Sounds (Bowel sounds diminished) Back Exam: Normal Inspection Extremities: Normal Inspection, Normal Range of Motion, Non-Tender, No Pedal Edema, Normal Capillary Refill Neurological: Alert, Oriented, CN II-XII Intact, No Motor/Sensory Deficits Skin Exam: Warm, Intact, Normal Color, No Rash, Diaphoretic (Mild) Lymphatic: No Adenopathy EKG INTERPRETATION EKG Date: 08/22/19 Time: 22:33 Rhythm: Other (Sinus tachycardia) Rate (Beats/Min): 125 [place]: Normal P-Wave: Present QRS: Normal ST-T: Normal QT: Normal Comparison: NA - No Prior EKG Course - Orders/Labs/Meds Orders: Active Orders 24 hr Category Date Time Status EKG Documentation Completion [RC] ASDIRECTED Care 08/22/19 22:48 Active Insert Urinary Catheter [OM.PC] Stat Care 08/23/19 01:44 Ordered RT Aerosol Therapy [RC] ASDIRECTED Care 08/22/19 22:49 Active RT Aerosol Therapy [RC] ASDIRECTED Care 08/23/19 00:27 Active Ang Chest [CT] Stat Exams 08/23/19 00:02 Taken Chest 1V Frontal [CR] Stat Exams 08/22/19 22:47 Taken Chest 1V Frontal [CR] Stat Exams 08/23/19 01:37 Taken CULTURE BLOOD [BC] Urgent Lab 08/23/19 00:30 Received CULTURE BLOOD [BC] Urgent Lab 08/23/19 00:35 Received INFLUENZA A+B AG SCREEN [RM] Stat Lab 08/23/19 00:40 Ordered Sodium Chloride 0.9% [Normal Saline] 1,000 ml Med 08/22/19 23:00 Active IV ASDIRECTED Sodium Chloride 0.9% [Saline Flush] Med 08/22/19 22:47 Active 10 ml FLUSH ASDIRECTED PRN Blood Culture x2 Reflex Set [OM.PC] Urgent Oth 08/23/19 00:03 Ordered Nasogastric Orogastric Tube Insertion [OM.PC] Routine Oth 08/23/19 01:45 Ordered Peripheral IV Insertion Adult [OM.PC] Routine Oth 08/22/19 22:47 Ordered EKG 12 Lead [EK] Routine Ther 08/22/19 22:48 Ordered Medication Orders Sodium Chloride (Normal Saline) 1,000 mls @ 100 mls/hr IV ASDIRECTED SHAYLA Stop: 08/26/19 22:50 Sodium Chloride (Saline Flush) 10 ml FLUSH ASDIRECTED PRN PRN Reason: Keep Vein Open Labs: Laboratory Tests 08/22/19 08/22/19 08/22/19 Range/Units 23:00 23:00 23:00 WBC 9.1 (4.5-12.0) X10-3/uL RBC 4.91 (4.30-5.75) x10(6)uL Hgb 14.7 (13.5-17.8) g/dL Hct 44.2 (30.0-51.3) % MCV 90.0 (80-96) fL MCH 30.0 (27.7-33.6) pg MCHC 33.3 (32.2-35.4) g/dL RDW 13.0 (11.5-15.5) % Plt Count 97 L (125-369) X10(3)uL MPV 10.3 (7.4-10.4) fL Neut % (Auto) 88.5 H (46-82) % Lymph % (Auto) 7.6 L (13-37) % [place] % (Auto) 3.6 L (4-12) % Eos % (Auto) 0 L (1.0-5.0) % Baso % (Auto) 0 (0-2) % Neut # (Auto) 8.1 (1.6-8.3) # Lymph # (Auto) 0.7 (0.6-5.0) # [place] # (Auto) 0.3 (0.0-1.3) # Eos # (Auto) 0.0 (0.0-0.8) # Baso # (Auto) 0.0 (0.0-0.2) # D-Dimer, Quantitative 0.91 H (0.0-0.59) mg/LFEU POC VBG pH (7.31-7.41) POC VBG pCO2 (41-51) mmHG POC VBG HCO3 (23-28) mmol/L POC VBG Total CO2 (24-29) mmol/L POC VBG Base Excess (-2-3) mmol/L Sodium 143 (135-145) mmol/L Potassium 3.7 (3.5-5.3) mmol/L Chloride 107 (100-110) mmol/L Carbon Dioxide 25 (21-32) mmol/L BUN 21 H (7-18) mg/dL Creatinine 1.2 (0.70-1.30) mg/dL Est Cr Clr Drug Dosing TNP Estimated GFR (MDRD) > 60 (>60) BUN/Creatinine Ratio 17.5 (9-20) Glucose 196 H (80-116) mg/dL Lactic Acid (0.4-2.0) mmol/L Calcium 8.4 L (8.6-10.2) mg/dL Magnesium 1.9 (1.8-2.5) mg/dL Total Bilirubin 0.5 (0.1-1.3) mg/dL AST 23 (5-25) IU/L ALT 48 H (12-36) U/L Alkaline Phosphatase 63 (56-112) IU/L Troponin I (<0.017-0.056) ng/mL C-Reactive Protein (0.5-0.9) mg/dL NT-Pro-B Natriuret Pep (<=125) pg/mL Total Protein 6.5 (6.0-8.0) g/dL Albumin 3.4 L (3.5-5.2) g/dL Globulin 3.1 g/dL Albumin/Globulin Ratio 1.1 08/22/19 08/22/19 08/22/19 Range/Units 23:00 23:00 23:20 WBC (4.5-12.0) X10-3/uL RBC (4.30-5.75) x10(6)uL Hgb (13.5-17.8) g/dL Hct (30.0-51.3) % MCV (80-96) fL MCH (27.7-33.6) pg MCHC (32.2-35.4) g/dL RDW (11.5-15.5) % Plt Count (125-369) X10(3)uL MPV (7.4-10.4) fL Neut % (Auto) (46-82) % Lymph % (Auto) (13-37) % [place] % (Auto) (4-12) % Eos % (Auto) (1.0-5.0) % Baso % (Auto) (0-2) % Neut # (Auto) (1.6-8.3) # Lymph # (Auto) (0.6-5.0) # [place] # (Auto) (0.0-1.3) # Eos # (Auto) (0.0-0.8) # Baso # (Auto) (0.0-0.2) # D-Dimer, Quantitative (0.0-0.59) mg/LFEU POC VBG pH 7.37 (7.31-7.41) POC VBG pCO2 35.1 L (41-51) mmHG POC VBG HCO3 20.3 L (23-28) mmol/L POC VBG Total CO2 21 L (24-29) mmol/L POC VBG Base Excess -5 L (-2-3) mmol/L Sodium (135-145) mmol/L Potassium (3.5-5.3) mmol/L Chloride (100-110) mmol/L Carbon Dioxide (21-32) mmol/L BUN (7-18) mg/dL Creatinine (0.70-1.30) mg/dL Est Cr Clr Drug Dosing Estimated GFR (MDRD) (>60) BUN/Creatinine Ratio (9-20) Glucose (80-116) mg/dL Lactic Acid 2.6 H* (0.4-2.0) mmol/L Calcium (8.6-10.2) mg/dL Magnesium (1.8-2.5) mg/dL Total Bilirubin (0.1-1.3) mg/dL AST (5-25) IU/L ALT (12-36) U/L Alkaline Phosphatase (56-112) IU/L Troponin I 0.017 (<0.017-0.056) ng/mL C-Reactive Protein 16.7 H* (0.5-0.9) mg/dL NT-Pro-B Natriuret Pep 1170 H* (<=125) pg/mL Total Protein (6.0-8.0) g/dL Albumin (3.5-5.2) g/dL Globulin g/dL Albumin/Globulin Ratio Meds: Medications Generic Name Dose Route Start Last Admin Trade Name Freq PRN Reason Stop Dose Admin Sodium Chloride 1,000 mls @ 100 mls/hr 08/22/19 23:00 Normal Saline IV 08/26/19 22:50 ASDIRECTED SHAYLA Sodium Chloride 10 ml 08/22/19 22:47 Saline Flush FLUSH ASDIRECTED PRN Keep Vein Open Discontinued Medications Generic Name Dose Route Start Last Admin Trade Name Freq PRN Reason Stop Dose Admin Albuterol 2.5 mg 08/22/19 22:48 08/22/19 23:16 Proventil Neb Soln NEB 08/22/19 22:49 2.5 mg ONETIME ONE Administration Albuterol 2.5 mg 08/23/19 00:26 Proventil Neb Soln NEB 08/23/19 00:27 ONETIME ONE Albuterol/Ipratropium 3 ml 08/22/19 22:48 08/22/19 23:16 Duoneb 3.0-0.5 Mg/3 Ml [facility] 08/22/19 22:49 3 ml ONETIME ONE Administration Ceftriaxone Sodium 1 gm 08/23/19 00:04 Rocephin IVPUSH 08/23/19 00:05 ONETIME ONE Azithromycin 500 mg/ Sodium 250 mls @ 250 mls/hr 08/23/19 00:04 Chloride IV 08/23/19 01:03 ONETIME ONE Sodium Chloride 500 mls @ 999 mls/hr 08/23/19 00:28 Normal Saline IV 08/23/19 00:58 .BOLUS ONE Iopamidol 100 ml 08/23/19 00:08 08/23/19 00:22 Isovue-370 (76%) IV 08/23/19 00:09 100 ml . DIRECTED ONE Administration Methylprednisolone Sodium Succinate 125 mg 08/22/19 22:48 08/22/19 23:16 Solu-Medrol IVPUSH 08/22/19 22:49 125 mg ONETIME ONE Administration Midazolam HCl Confirm 08/23/19 01:34 Versed 1 Mg/Ml Administered 08/23/19 01:35 Dose 2 mg .ROUTE .STK-MED ONE - Radiology Interpretation Free Text/Narrative:: Portable chest x-ray shows bilateral infiltrates versus edema. This is new from previous chest x-ray June 2019. CTA of the chest showed bilateral multifocal infiltrates with effusions. There is also edema present and adenopathy. Portal chest x-ray postintubation shows good ET tube placement and improved aeration but no real change in the infiltrates. - Re-Assessments/Exams Free Text/Narrative Re-Assessment/Exam: 08/23/19 02:10: (This represents a combined summary note the patient's care while in the emergency department) the patient initially was given albuterol and DuoNeb nebulizer treatment Solu-Medrol 125 mg IV. His EKG was reassuring and showed no acute injury pattern. Following the nebulizer treatments we were able to place him on 6 L/m via nasal cannula with O2 saturations of 90-91%. He was alert and conversant but still having respiratory rate in the 40s. The portable chest x-ray showed bilateral pneumonias and blood cultures and lactic acid were ordered. The patient's blood tests supported an infectious process and the patient was given Rocephin and Zithromax IV. His d-dimer was 0.91 and he was sent for CTA of his chest. When he came back from CT, his breathing had worsened and his O2 saturations were again in the low 80s on 6 L/m via nasal cannula. I reapplied 100% nonrebreather with O2 saturations going up to 93-94% but he was still having respiratory rate in the 50s was awake, alert and appropriate but in obvious distress. Initial blood gas showed a pH of 7.37 but he definitely appeared to be worsening and it was felt that intubation would be necessary. At this point anesthesia was called and I called [facility] and discussed the patient's case with Dr. Godinez. He agreed that the patient needed intubation and is accepting the patient in transfer. We'll need to be transferred because he will need ICU care which is not available here he will also need critical care and pulmonary medicine specially services which are not available hospital. I had discussed this with the patient previously and didn't need to test his case with the doctors at [facility] in [place]. Once anesthesia personnel had arrived, the patient was sedated was really intubated by KIRIT Castillo with my assistance. The patient remained mended avidly and respiratory stable throughout the intubation and there were no apparent complications. Immediate bilateral breath sounds were apparent and the patient's O2 saturations improved significantly following intubation. The patient was sedated using Versed and was kept chemically paralyzed using rocuronium. In addition he was given normal saline fluid bolus 500 mL 2. EMS has arrived and is now transporting the patient. The plan will be to continue those monitoring with IV fluid boluses with normal saline as necessary and to maintain sedation with ketamine. Currently the patient's pulse is in the 140s with a blood pressure in the 120 systolic range. His O2 saturations are 98-100%. A Santos catheter has been placed. He is producing yellow urine. 08/23/19 02:18: Total critical care time spent with the patient was 120 minutes. Departure - Departure Time of Disposition: 02:15 Disposition: DC/Tfer to Acute Hospital 02 Condition: Critical Clinical Impression: Acute respiratory failure with hypoxia, ARDS (adult respiratory distress syndrome) Bilateral pneumonia Qualifiers: Pneumonia type: due to unspecified organism Lung location: unspecified part of lung Qualified Code(s): J18.9 - Pneumonia, unspecified organism - Discharge Information Referrals: Evelyn Hameed NP [Primary Care Provider] - Forms: ED Department Discharge Sepsis Event Note - Focused Exam Date Exam was Performed: 08/23/19 Time Exam was Performed: 01:47 - My Orders Last 24 Hours: My Active Orders 08/22/19 22:47 Chest 1V Frontal [CR] Stat Sodium Chloride 0.9% [Saline Flush] 10 ml FLUSH ASDIRECTED PRN Peripheral IV Insertion Adult [OM.PC] Routine 08/22/19 22:48 EKG Documentation Completion [RC] ASDIRECTED EKG 12 Lead [EK] Routine 08/22/19 22:49 RT Aerosol Therapy [RC] ASDIRECTED 08/22/19 23:00 Sodium Chloride 0.9% [Normal Saline] 1,000 ml IV ASDIRECTED 08/23/19 00:02 Ang Chest [CT] Stat 08/23/19 00:03 Blood Culture x2 Reflex Set [OM.PC] Urgent 08/23/19 00:27 RT Aerosol Therapy [RC] ASDIRECTED 08/23/19 00:30 CULTURE BLOOD [BC] Urgent 08/23/19 00:35 CULTURE BLOOD [BC] Urgent 08/23/19 00:40 INFLUENZA A+B AG SCREEN [RM] Stat 08/23/19 01:37 Chest 1V Frontal [CR] Stat 08/23/19 01:44 Insert Urinary Catheter [OM.PC] Stat 08/23/19 01:45 Nasogastric Orogastric Tube Insertion [OM.PC] Routine - Assessment/Plan Last 24 Hours: My Active Orders 08/22/19 22:47 Chest 1V Frontal [CR] Stat Sodium Chloride 0.9% [Saline Flush] 10 ml FLUSH ASDIRECTED PRN Peripheral IV Insertion Adult [OM.PC] Routine 08/22/19 22:48 EKG Documentation Completion [RC] ASDIRECTED EKG 12 Lead [EK] Routine 08/22/19 22:49 RT Aerosol Therapy [RC] ASDIRECTED 08/22/19 23:00 Sodium Chloride 0.9% [Normal Saline] 1,000 ml IV ASDIRECTED 08/23/19 00:02 Ang Chest [CT] Stat 08/23/19 00:03 Blood Culture x2 Reflex Set [OM.PC] Urgent 08/23/19 00:27 RT Aerosol Therapy [RC] ASDIRECTED 08/23/19 00:30 CULTURE BLOOD [BC] Urgent 08/23/19 00:35 CULTURE BLOOD [BC] Urgent 08/23/19 00:40 INFLUENZA A+B AG SCREEN [RM] Stat 08/23/19 01:37 Chest 1V Frontal [CR] Stat 08/23/19 01:44 Insert Urinary Catheter [OM.PC] Stat 08/23/19 01:45 Nasogastric Orogastric Tube Insertion [OM.PC] Routine
[2019-08-22] MEDS ORDERED: Sodium Chloride 0.9% 1,000 ML IV SCH (23:00)
[2019-08-23] MEDS ORDERED: cefTRIAXone 1 GM Vial IVPUSH ONE (00:04)
[2019-08-23] MEDS ORDERED: Azithromycin 500 MG in Sodium Chloride 0.9% 250 ML IV ONE (00:04)
[2019-08-23] MEDS ORDERED: Iopamidol 755 Mg/ML 100 ML Bottle IV ONE (00:08)
[2019-08-23] MEDS ORDERED: Albuterol 0.083% 2.5 MG/3 ML Neb Soln NEB ONE (00:26)
[2019-08-23] MEDS ORDERED: Sodium Chloride 0.9% 500 ML IV ONE (00:28)
[2019-08-23] MEDS ORDERED: Midazolam 1 MG/ML 2 ML SDV ONE (01:34)
== END 2019-08-23 02:10 ==
LOC: FB.ED 22:19
DX: J18.9 Pneumonia, unspecified organism (principal); J96.01 Acute respiratory failure with hypoxia; I10 Essential (primary) hypertension; E11.9 Type 2 diabetes mellitus without complications; E78.00 Pure hypercholesterolemia, unspecified; F41.9 Anxiety disorder, unspecified; F32.9 Major depressive disorder, single episode, unspecified; Z87.891 Personal history of nicotine dependence
CPT/HCPCS: 31500; 36415; 51702; 71045; 71275; 80053; 82803; 83605; 83735; 83880; 84484; 85025; 85379; 86140; 87040; 93005; 94640; 96361; 96374; 96375; 99291; 99292; J0330; J0456; J0696; J2250; J2704; J2930; J7030; J7050; Q9967; J7620-GY

== ENCOUNTER 2020-02-14 02:40 | Emergency (ER) | payer MEDICAID | END 2020-02-14 02:50 | disposition left against medical advice (07) | LOC: FB.ED 02:40 | DX: Z53.21 Procedure and treatment not carried out due to patient leaving prior to being seen by health care provider (principal) ==